=== PATIENT | male | born 1970 | race Caucasian/White ===

== ENCOUNTER → 2023-10-09 10:24 | Outpatient (REF) | payer OTHER, SELFPAY | LOC: RCS 10:24 | PROVIDERS: ATTENDING PHYSICIAN Family Medicine | DX: R07.9 Chest pain, unspecified (principal); R00.1 Bradycardia, unspecified; R06.02 Shortness of breath; I10 Essential (primary) hypertension | CPT/HCPCS: 93225; 93226 ==

== ENCOUNTER → 2023-10-12 11:20 | Outpatient (REF) | payer OTHER, SELFPAY | LOC: RCS 11:20 | PROVIDERS: ATTENDING PHYSICIAN Family Medicine | DX: R07.9 Chest pain, unspecified (principal); I10 Essential (primary) hypertension; R00.1 Bradycardia, unspecified; R06.02 Shortness of breath | CPT/HCPCS: 93017; 93306 ==

== ENCOUNTER → 2023-11-03 09:46 | Outpatient (REF) | payer OTHER, SELFPAY | LOC: RCS 09:46 | PROVIDERS: ATTENDING PHYSICIAN Internal Medicine Cardiovascular Disease; FAMILY PHYSICIAN Family Medicine | DX: R07.89 Other chest pain (principal); R94.31 Abnormal electrocardiogram [ECG] [EKG] | CPT/HCPCS: 93017; 93350 ==

== ENCOUNTER → 2024-12-08 11:33 | Outpatient (REF) | payer OTHER, SELFPAY | LOC: RAD 11:33 | PROVIDERS: ATTENDING PHYSICIAN Physician Assistant | DX: M25.562 Pain in left knee (principal) | CPT/HCPCS: 73564 ==

== ENCOUNTER 2025-02-06 09:15 | Day surgery (SDC) | payer OTHER, SELFPAY ==
[2025-02-06 08:55] VITALS: BMI 50.4
[2025-02-06 09:00] VITALS: BMI 50.4
[2025-02-06 09:15] VITALS: BP 167/92
[2025-02-06 10:37] VITALS: BP 133/80
[2025-02-06 10:45] VITALS: BP 143/73
[2025-02-06 11:00] VITALS: BP 156/92
== END 2025-02-06 11:18 | disposition home or self-care (01) ==
LOC: GI 09:15
PROVIDERS: ATTENDING PHYSICIAN Specialist
DX: K22.70 Barrett's esophagus without dysplasia (principal); K31.7 Polyp of stomach and duodenum
CPT/HCPCS: 43239; 88305